=== PATIENT | female | born 1975 | race Caucasian/White ===

== ENCOUNTER 2021-05-11 11:58 | Inpatient (IN) ==
[2021-05-11] MEDS ORDERED: cloNIDine HCL 0.1 MG TABLET PO ONE (12:39)
[2021-05-11 13:04] LABS: Basophils # 0.1 K/mcL (0.0-0.2); Basophils % 0.6 %; Eosinophils # 0.2 K/mcL (0.0-0.6); Eosinophils % 2.4 %; Hemoglobin 12.3 g/dL (11.5-15.4); Immature Granulocytes % 0.4 % (0-4); Lymphocytes % 20.4 %; Mean Corpuscular HGB Conc 30.8 g/dL (31.6-35.5); Mean Corpuscular Hemoglobin 25.2 pg (28.0-33.3); Mean Platelet Volume 9.2 fL (9.4-12.4); Monocytes # 0.6 K/mcL (0.0-1.3); Monocytes % 6.5 %; Neutrophils # 6.7 K/mcL (1.6-8.9); Platelet Count 354 K/mcL (140-400); Red Blood Count 4.88 M/mcL (3.82-4.97); Red Cell Distribution Width 15.4 % (11.5-14.5); Segmented Neutrophils % 69.7 %; White Blood Count 9.6 K/mcL (4.3-11.1)
[2021-05-11 13:07] LABS: Prothrombin Time 12.1 Seconds (9.4-12.1)
[2021-05-11 13:11] LABS: VBG HCO3 25 mEq/L (21-27); VBG PCO2 37 mmHg (41-51); VBG PH 7.44 pH Units (7.32-7.42); VBG PO2 93 mmHg (25-50)
[2021-05-11 13:14] LABS: Bilirubin,Urine Negative (Negative); Blood,Urine Moderate (Negative); Clarity,Urine Clear (Clear); Color,Urine Yellow (Yellow); Glucose,Urine (UA) Normal (Normal); Ketones,Urine Negative (Negative); Leukocyte Esterase,Urine Negative (Negative); Nitrite,Urine Negative (Negative); Protein,Urine Negative (Neg-Trace); Specific Gravity,Urine 1.025 (1.010-1.025); Urobilinogen,Urine Normal (Normal)
[2021-05-11 13:16] LABS: Alanine Aminotransferase 30 Units/L (7-52); Albumin/Globulin Ratio 1.3 (1.1-2.2); Alkaline Phosphatase 61 Units/L (34-104); Aspartate Amino Transferase 21 Units/L (13-39); BUN/Creatinine Ratio 8 (6-26); Bilirubin,Total 0.4 mg/dL (0.3-1.0); Blood Urea Nitrogen 7 mg/dL (6-20); Calcium 9.7 mg/dL (8.6-10.3); Carbon Dioxide 27 mEq/L (23-29); Chloride 103 mEq/L (98-107); Globulin 3.1 g/dL (2.4-3.5); Glucose 122 mg/dL (70-105); Osmolality,Calculated 281 (280-300); Potassium 4.2 mEq/L (3.5-5.1); Sodium 136 mEq/L (136-145); Total Protein 7.1 g/dL (6.4-8.9); eGFR For African Americans > 60 (> 60); eGFR For Non-African Americans > 60 (> 60)
[2021-05-11 13:20] LABS: Activated Partial Thrombo Time 23.1 Seconds (26.0-36.0)
[2021-05-11 13:30] LABS: RBC,Urine 0-3 per hpf (0-3); Squamous Epithelial Cell,Urine Few per hpf (None-Few); WBC,Urine 0-3 per hpf (0-3)
[2021-05-11] MEDS ORDERED: Naloxone 0.4 MG/ML INJ IVP PRN (13:49)
[2021-05-11] MEDS ORDERED: Mag Hydrox/Al Hydrox/Simeth 30 ML UDC PO PRN (13:55)
[2021-05-11] MEDS ORDERED: Ondansetron ODT 4 MG TAB.RAPDIS SL PRN (13:55)
[2021-05-11] MEDS ORDERED: *HR* Labetalol 20 MG/4 ML SYRINGE IVP PRN (14:23)
[2021-05-11] MEDS: Acetaminophen 325 MG TABLET PO PRN (17:10)
[2021-05-11] MEDS ORDERED: Perflutren Lipid Microsphere 1.3 ML in 0.9 % Sodium Chloride 8.7 ML IVP PRN (17:52)
[2021-05-11] MEDS: carvediloL 25 MG TABLET PO SCH (18:58)
[2021-05-11] MEDS: tiZANidine 4 MG TABLET PO SCH (20:04)
[2021-05-11] MEDS: Nystatin POWDER 30 GM BOTTLE TP SCH (20:09)
[2021-05-11] MEDS ORDERED: Melatonin 3 MG TABLET PO SCH (21:00)
[2021-05-12] MEDS: Acetaminophen 325 MG TABLET PO PRN (02:01)
[2021-05-12] MEDS: *HR* Enoxaparin 40 MG/0.4 ML SYRINGE SQ SCH (04:32)
[2021-05-12 05:16] LABS: Basophils % 0.4 %; Eosinophils # 0.3 K/mcL (0.0-0.6); Hematocrit 36.6 % (35.3-44.9); Hemoglobin 11.3 g/dL (11.5-15.4); Immature Granulocytes % 0.4 % (0-4); Lymphocytes # 2.1 K/mcL (0.6-4.6); Lymphocytes % 22.6 %; Mean Corpuscular HGB Conc 30.9 g/dL (31.6-35.5); Mean Corpuscular Hemoglobin 25.5 pg (28.0-33.3); Mean Corpuscular Volume 82.4 fL (83.0-100.0); Mean Platelet Volume 9.4 fL (9.4-12.4); Monocytes # 0.6 K/mcL (0.0-1.3); Monocytes % 6.6 %; Neutrophils # 6.2 K/mcL (1.6-8.9); Platelet Count 320 K/mcL (140-400); Red Blood Count 4.44 M/mcL (3.82-4.97); Red Cell Distribution Width 15.5 % (11.5-14.5); White Blood Count 9.3 K/mcL (4.3-11.1)
[2021-05-12 05:32] LABS: BUN/Creatinine Ratio 9 (6-26); Blood Urea Nitrogen 10 mg/dL (6-20); Calcium 9.1 mg/dL (8.6-10.3); Carbon Dioxide 29 mEq/L (23-29); Chloride 100 mEq/L (98-107); Glucose 137 mg/dL (70-105); Magnesium 1.9 mg/dL (1.6-2.6); Osmolality,Calculated 285 (280-300); Sodium 137 mEq/L (136-145); eGFR For African Americans > 60 (> 60); eGFR For Non-African Americans 56 (> 60)
[2021-05-12 07:27] LABS: Bilirubin,Urine Negative (Negative); Blood,Urine Small (Negative); Clarity,Urine Clear (Clear); Color,Urine Yellow (Yellow); Glucose,Urine (UA) Normal (Normal); Ketones,Urine Negative (Negative); Leukocyte Esterase,Urine Negative (Negative); Nitrite,Urine Negative (Negative); Protein,Urine Negative (Neg-Trace); Specific Gravity,Urine 1.025 (1.010-1.025); Urobilinogen,Urine Normal (Normal)
[2021-05-12 07:38] LABS: RBC,Urine 0-3 per hpf (0-3); Squamous Epithelial Cell,Urine Few per hpf (None-Few)
[2021-05-12 07:55] LABS: % Iron Saturation 9 % (15-50); Iron 39 mcg/dL (50-170); Transferrin 323 mg/dL (203-362)
[2021-05-12 08:07] LABS: Estimated Average Glucose 171 mg/dl; Hemoglobin A1C 7.6 %
[2021-05-12] MEDS: lamoTRIgine 100 MG TABLET PO SCH (08:20)
[2021-05-12] MEDS: carvediloL 25 MG TABLET PO SCH ×2 (08:21→18:30)
[2021-05-12] MEDS ORDERED: Spironolactone 25 MG TABLET PO SCH (09:00)
[2021-05-12] MEDS: Nystatin POWDER 30 GM BOTTLE TP SCH ×2 (12:58→22:01)
[2021-05-12] MEDS ORDERED: Albuterol 2.5 MG/3 ML NEBULIZER ONE (18:49)
[2021-05-12] MEDS: Albuterol 2.5 MG/3 ML NEBULIZER IH SCH (18:56)
[2021-05-12] MEDS: Melatonin 3 MG TABLET PO PRN (21:58)
[2021-05-12] MEDS: tiZANidine 4 MG TABLET PO SCH (21:59)
[2021-05-13] MEDS: Acetaminophen 325 MG TABLET PO PRN ×2 (00:02→14:10)
[2021-05-13 06:15] LABS: Basophils # 0.1 K/mcL (0.0-0.2); Basophils % 0.7 %; Eosinophils # 0.2 K/mcL (0.0-0.6); Eosinophils % 1.6 %; Hematocrit 38.1 % (35.3-44.9); Hemoglobin 11.7 g/dL (11.5-15.4); Immature Granulocytes % 0.3 % (0-4); Lymphocytes # 1.8 K/mcL (0.6-4.6); Lymphocytes % 17.3 %; Mean Corpuscular HGB Conc 30.7 g/dL (31.6-35.5); Mean Corpuscular Hemoglobin 24.9 pg (28.0-33.3); Mean Corpuscular Volume 81.2 fL (83.0-100.0); Mean Platelet Volume 9.1 fL (9.4-12.4); Monocytes # 0.7 K/mcL (0.0-1.3); Neutrophils # 7.7 K/mcL (1.6-8.9); Platelet Count 350 K/mcL (140-400); Red Blood Count 4.69 M/mcL (3.82-4.97); Red Cell Distribution Width 15.8 % (11.5-14.5); Segmented Neutrophils % 73.1 %; White Blood Count 10.5 K/mcL (4.3-11.1)
[2021-05-13 06:33] LABS: Calcium 9.1 mg/dL (8.6-10.3); Potassium 3.6 mEq/L (3.5-5.1)
[2021-05-13] MEDS: *HR* Enoxaparin 40 MG/0.4 ML SYRINGE SQ SCH (06:38)
[2021-05-13] MEDS: carvediloL 25 MG TABLET PO SCH ×2 (08:53→17:31)
[2021-05-13] MEDS: lamoTRIgine 100 MG TABLET PO SCH (08:54)
[2021-05-13] MEDS: Nystatin POWDER 30 GM BOTTLE TP SCH ×2 (08:59→19:44)
[2021-05-13] MEDS ORDERED: *HR* Metformin 500 MG TABLET PO SCH (09:00)
[2021-05-13] MEDS: Albuterol 2.5 MG/3 ML NEBULIZER IH SCH ×2 (09:53→20:33)
[2021-05-13] MEDS ORDERED: 0.9 % Sodium Chloride 1,000 ML IV ONE (10:42)
[2021-05-13] MEDS: tiZANidine 4 MG TABLET PO SCH (19:42)
[2021-05-13] MEDS: Melatonin 3 MG TABLET PO PRN (19:42)
[2021-05-14 06:01] LABS: Basophils # 0.1 K/mcL (0.0-0.2); Basophils % 0.6 %; Eosinophils # 0.3 K/mcL (0.0-0.6); Eosinophils % 2.4 %; Hematocrit 39.6 % (35.3-44.9); Hemoglobin 12.2 g/dL (11.5-15.4); Immature Granulocytes % 0.4 % (0-4); Lymphocytes # 2.3 K/mcL (0.6-4.6); Lymphocytes % 21.1 %; Mean Corpuscular HGB Conc 30.8 g/dL (31.6-35.5); Mean Corpuscular Hemoglobin 25.2 pg (28.0-33.3); Mean Corpuscular Volume 81.6 fL (83.0-100.0); Monocytes # 0.7 K/mcL (0.0-1.3); Neutrophils # 7.6 K/mcL (1.6-8.9); Platelet Count 384 K/mcL (140-400); Red Blood Count 4.85 M/mcL (3.82-4.97); Red Cell Distribution Width 15.9 % (11.5-14.5); Segmented Neutrophils % 69.5 %
[2021-05-14 06:39] LABS: Uric Acid 7.3 mg/dL (2.3-7.6)
[2021-05-14 06:41] LABS: Calcium 9.4 mg/dL (8.6-10.3); Potassium 3.6 mEq/L (3.5-5.1)
[2021-05-14] MEDS: *HR* Enoxaparin 40 MG/0.4 ML SYRINGE SQ SCH (06:46)
[2021-05-14] MEDS: Albuterol 2.5 MG/3 ML NEBULIZER IH SCH ×2 (07:01→20:35)
[2021-05-14] MEDS: carvediloL 25 MG TABLET PO SCH ×2 (08:35→15:35)
[2021-05-14] MEDS: Nystatin POWDER 30 GM BOTTLE TP SCH ×2 (08:36→19:40)
[2021-05-14] MEDS: lamoTRIgine 100 MG TABLET PO SCH (08:36)
[2021-05-14 11:08] LABS: ANA IgG by ELISA NONE DETECTED (None Detected)
[2021-05-14 16:49] LABS: APTT (LE Anticoag) 36 sec (32-48); Diluted Russell Viper Venom 27 sec (33-44); PT (LE-Anticoag) 13.5 sec (12.0-15.5)
[2021-05-14] MEDS: Melatonin 3 MG TABLET PO PRN (19:39)
[2021-05-14] MEDS: tiZANidine 4 MG TABLET PO SCH (19:40)
[2021-05-15 06:30] LABS: Potassium 3.3 mEq/L (3.5-5.1)
[2021-05-15] MEDS: *HR* Enoxaparin 40 MG/0.4 ML SYRINGE SQ SCH (07:03)
[2021-05-15] MEDS: Albuterol 2.5 MG/3 ML NEBULIZER IH SCH (08:14)
[2021-05-15 09:41] VITALS: BP 141/83; PULSE 90; RESP 14; TEMP 97.8; O2SAT 94
[2021-05-15] MEDS: lamoTRIgine 100 MG TABLET PO SCH (09:49)
[2021-05-15] MEDS: carvediloL 25 MG TABLET PO SCH (09:49)
[2021-05-15] MEDS: Nystatin POWDER 30 GM BOTTLE TP SCH (09:50)
[2021-05-15] MEDS ORDERED: Potassium Chloride Elixir 20 MEQ/15 ML UDC PO ONE (12:12)
[2021-05-15 19:08] LABS: Metanephrine, Plasma <0.10 nmol/L (0.00-0.49)
== END 2021-05-15 14:21 | disposition home or self-care (01) | DRG 305 ==
LOC: EMEROOGRE 11:58 → INPGRE 11:58
PROVIDERS: ADMIT Family Medicine; ATTEND Family Medicine